=== PATIENT | female | born 1950 | race Caucasian/White ===

== ENCOUNTER 2017-01-21 08:44 | Emergency (ER) | payer MEDICARE, BC ==
[2017-01-21 08:52] VITALS: BP 181/83
--- NOTE | 2017-01-21 11:01 | ED Physician Documentation ---
PD HPI LOWER EXT INJURY - Stated complaint Stated Complaint: RT LE LAC - Chief complaint Chief Complaint: Ext Problem - History obtained from History obtained from: Patient - History of Present Illness PD HPI LOW EXT INJURY LOCATION: Right, Lower leg Type of injury: Blunt / blow (she ran into edge of metal object, which caused laceration to lower leg. Edges are open and still some bleeding at times today.) Where injury occurred: Home Timing - onset: Last night Timing - details: Abrupt onset Worsened by: Moving Associated symptoms: No: Weakness, Numbness, Swelling Contributing factors: No: Anticoagulated Similar symptoms before: Has not had sx before Recently seen: Not recently seen Review of Systems Neurologic: denies: Focal weakness, Numbness, Near syncope Endocrine: denies: Easy bruising / bleeding PD PAST MEDICAL HISTORY - Past Medical History Past Medical History: Yes - Present Medications Home Medications: Ambulatory Orders Medication Instructions Recorded Confirmed Atenolol 25 mg PO DAILY 01/21/17 01/21/17 Levothyroxine Sodium [Synthroid] 100 mcg PO DAILY 01/21/17 01/21/17 - Allergies Allergies/Adverse Reactions: Allergies Allergy/AdvReac Type Severity Reaction Status Date / Time scallops Allergy Unknown Verified 01/21/17 08:53 Sulfa (Sulfonamide Allergy Unknown Verified 01/21/17 08:53 Antibiotics) fermadahyde Allergy Unknown Uncoded 01/21/17 08:53 - Social History Does the pt smoke?: No Smoking Status: Never smoker - Immunizations Immunizations are current?: Yes Immunizations: TDAP current <10years PD ED PE NORMAL - Vitals Vital signs reviewed: Yes - General General: Alert and oriented X 3, No acute distress, Well developed/nourished - Derm Derm: Normal color, Warm and dry - Extremities Extremities: Other (right anterolateral lower leg with laceration that has edges slightly open, minimal oozing of bleeding. NO FB. Does not go to deep structures. ) - Neuro Neuro: Alert and oriented X 3, No motor deficit, No sensory deficit, Normal speech Results - Vitals Vitals: Oxygen O2 Source Room air Procedures - Laceration (location) right lower leg Length in cm: 2 Wound type: Linear, Into subcut fat, Clean Neurovascular status: Sensory intact, Motor intact Tendon involvement: Tendon intact Anesthesia: Lidocaine 1% with epi Skin layer closure: Nylon, Running, Size #-0 - enter number (4) Other: Patient tolerated well, No complications, Neurovascular intact, Dressing applied, Tetanus UTD Complexity: Simple Departure - Departure Disposition: 01 Home, Self Care Clinical Impression: Laceration of lower leg, right Qualifiers: Encounter type: initial encounter Qualified Code(s): S81.811A - Laceration without foreign body, right lower leg, initial encounter Condition: Stable Record reviewed to determine appropriate education?: Yes Instructions: ED Laceration Ext Sutr Stap Tape Comments: It is okay to wash and shower. Clean off the wound twice a day with soap and water, or peroxide and water. Apply some antibiotic ointment to it to keep it moist. Also to watch for signs of infection such as purulence, redness or increasing pain. Return to your primary care or the ER at the specified time for suture removal. Tylenol or ibuprofen or naproxen if needed for pain. Suture removal in about 12 days. Discharge Date/Time: 01/21/17 11:55
== END 2017-01-21 11:55 | disposition home or self-care (01) ==
LOC: ED 08:44
DX: S81.811A Laceration without foreign body, right lower leg, initial encounter (principal); W22.8XXA Striking against or struck by other objects, initial encounter; Y92.009 Unspecified place in unspecified non-institutional (private) residence as the place of occurrence of the external cause
CPT/HCPCS: 12001; 99282; 99283

== ENCOUNTER 2017-06-17 20:28 | Emergency (ER) | payer MEDICARE, BC ==
[2017-06-17 20:39] VITALS: BP 174/104
[2017-06-17 20:51] LABS: UA w/ MICROSCOPIC CHARGE YES
[2017-06-17 21:14] LABS: WBC,URINE >25 /HPF (0-5)
[2017-06-17 21:15] LABS: UR CULTURE IF IND INDICATED
[2017-06-17] MEDS ORDERED: CEPHALEXIN 250 MG CAPSULE PO STA (21:17)
[2017-06-17] MEDS ORDERED: CEPHALEXIN 250 MG Prepack 8 PO ONE ×2 (21:20→21:30)
--- NOTE | 2017-06-17 21:20 | ED Physician Documentation ---
PD HPI FEMALE - Stated complaint Stated Complaint: FEMALE - Chief complaint Chief Complaint: Abd Pain - History obtained from History obtained from: Patient - History of Present Illness Timing - onset: Today Timing - duration: Days (1) Timing - details: Abrupt onset, Still present Associated symptoms: Dysuria, Urinary frequency, Hematuria. 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 HEENT: Tonsil/Adenoidectomy, Other - Present Medications Home Medications: Ambulatory Orders Medication Instructions Recorded Confirmed Atenolol 25 mg PO DAILY 01/21/17 01/21/17 Levothyroxine Sodium [Synthroid] 100 mcg PO DAILY 01/21/17 01/21/17 Cephalexin [Keflex] 500 mg PO TID #12 capsule 06/17/17 - Allergies Allergies/Adverse Reactions: Allergies Allergy/AdvReac Type Severity Reaction Status Date / Time scallops Allergy Unknown Verified 06/17/17 20:39 Sulfa (Sulfonamide Allergy Unknown Verified 06/17/17 20:39 Antibiotics) fermadahyde Allergy Unknown Uncoded 01/21/17 08:53 - Social History Does the pt smoke?: No Smoking Status: Never smoker Does the pt drink ETOH?: Yes ETOH Use: Wine, Liquor Does the pt have substance abuse?: Yes - Immunizations Immunizations are current?: Yes Immunizations: TDAP current <10years PD ED PE NORMAL - Vitals Vital signs reviewed: Yes - General General: Alert and oriented X 3, No acute distress, Well developed/nourished - Abdomen Abdomen: Soft, Non tender - Female Female : Deferred - Back Back: No CVA TTP - Derm Derm: Normal color, Warm and dry Results - Vitals Vitals: Oxygen O2 Source Room air - Labs Labs: Microbiology 06/17/17 20:40 Urine Culture - Final Urine,Clean Catch No growth Laboratory Tests 06/17/17 20:40 Urine Color ORANGE Urine Clarity HAZY Urine pH Ur Specific [place] Urine Protein Urine Glucose (UA) Urine Ketones Urine Occult Blood Urine Nitrite Urine Bilirubin Urine Urobilinogen Ur Leukocyte Esterase Urine RBC 11-25 H Urine WBC >25 H Ur Squamous Epith Cells FEW Squamous Urine Bacteria Moderate H Ur Microscopic Review INDICATED Urine Culture Comments INDICATED PD MEDICAL DECISION MAKING - ED course Complexity details: reviewed results, considered differential, d/w patient Departure - Departure Disposition: Home, Self Care Clinical Impression: Dysuria Urinary tract infection Qualifiers: Urinary tract infection type: acute cystitis Hematuria presence: with hematuria Qualified Code(s): N30.01 - Acute cystitis with hematuria Condition: Stable Record reviewed to determine appropriate education?: Yes Instructions: ED UTI Cystitis Female Follow-Up: Kinsey Davila MD [Primary Care Provider] - Prescriptions: Cephalexin [Keflex] 500 mg PO TID #12 capsule Comments: Drink lots of fluids. Continue the phenazopyridine as needed for discomfort of urination. Your urine test does look like infection so presumably antibiotics will clear it up. The culture results will be available in 2-3 days and will call you if the antibiotic choice needs amending. Currently will go with cephalexin 3 times a day for 5 days. Discharge Date/Time: 06/17/17 21:27
[2017-06-17] MEDS ORDERED: CEPHALEXIN 250 MG CAPSULE PO ONE (21:27)
== END 2017-06-17 21:27 | disposition home or self-care (01) ==
LOC: ED 20:28
DX: N30.01 Acute cystitis with hematuria (principal); I10 Essential (primary) hypertension; E03.9 Hypothyroidism, unspecified; K21.9 Gastro-esophageal reflux disease without esophagitis
CPT/HCPCS: 81001; 87086; 99283; A9270; 81003